=== PATIENT | female | born 1940 | race Caucasian/White ===

== ENCOUNTER 2025-05-19 12:00 | Emergency (ER) | payer OTHER, SELFPAY ==
[2025-05-19] VITALS (10 sets, daily range): BP systolic 121–144; BP diastolic 55–69; PULSE 70–81; BMI 26.3
[2025-05-19 12:43] LABS: Hematocrit 40.7 % (37.0-47.0); Hemoglobin 13.3 g/dL (12.0-16.0); Mean Corp Hgb Conc. 32.7 g/dL (33.0-37.0); Mean Corpuscular Volume 94.7 fL (81.0-99.0); Nucleated Red Blood Cells % 0 %; Platelet Count 318 10^3/uL (130-400); Red Cell Dist. Width 13.5 % (11.5-14.5)
[2025-05-19 12:50] LABS: COVID-19 Antigen Negative (Negative)
[2025-05-19 12:58] LABS: ALT (SGPT) 23 U/L (0-35); AST (SGOT) 29 U/L (14-36); Albumin 3.8 g/dl (3.5-5.0); Alkaline Phosphatase 80 U/L (38-126); Blood Urea Nitrogen 27 mg/dl (7-17); Calcium 9.3 mg/dl (8.4-10.2); Carbon Dioxide 25 mmol/L (22-30); Chloride 102 mmol/L (98-107); Estimated Creatinine Clearance 29 ml/min; Glucose 138 mg/dl (70-99); Potassium 4.2 mmol/L (3.5-5.1); Sodium 138 mmol/L (135-145); Total Protein 7.2 g/dl (6.3-8.2); eGFR 37.33
[2025-05-19] MEDS: NSS 1000 IV (13:07)
[2025-05-19 13:10] LABS: Troponin I 0.013 ng/ml
--- NOTE | 2025-05-19 13:19 | ED.GENMED ---
History of Present Illness
General
Chief Complaint: Fainting Sensation
Time Seen by Provider: 05/19/25 12:23
History of Present Illness
History of Present Illness:
84-year-old female with history of Owen's palsy, TIA, hyperlipidemia, hypertension, chronic neck pain with prior laminectomy presenting to the emergency department for near syncopal episode. Patient was at [employer] prior to arrival. She stood up,
and suddenly had to sit back down because she was about to pass out. Witnessed by family. No report of full LOC. I do note the patient overall has poor p.o. intake, does not drink a lot of fluids. Patient reports that she drank a small juice
glass of V8 today, otherwise did not had anything to eat. Patient has chronic neck pain, so did take an oxycodone this morning. Has had syncopal episodes in the past, [place], however thought to be secondary to the heat.
Patient was incontinent of stool, however no report of any shaking activity. No report of any recent fever. Patient denies any prodromal chest pain or difficulty breathing. Patient currently denies acute medical complaints
Past History
Past History
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
Social History
Tobacco: Former smoker
Alcohol: Occasional
Personal:
Living: with family
Phy Exam
Physical Exam
Physical Exam:
General: Well-appearing, no clinical signs of dehydration, nontoxic and in no acute distress
HEENT: protecting airway, pupils equal and reactive, extraocular movements intact
Neck: appears supple
CV: Normal heart rate, regular rhythm
Resp: No accessory muscle use, no increased work of breathing, lungs clear to auscultation bilaterally
Abd: Soft and non-distended, no tenderness to palpation
Extremities: No deformities, no swelling
Neuro: alert, no focal neurologic deficit. Left facial drooping, reported chronic from prior Owen's palsy
: deferred
Rectal: deferred
Psych: Normal affect
Skin: Intact
Course
Orders/Labs/Results
Orders:
Orders
05/19/25 12:12
Electrocardiogram (*1) Urgent
Reason for Study: Vertigo / Dizzy
EKG- Treatment ONCE
05/19/25 12:25
COVID-19 Antigen Urgent
Source: Nasal Swab
Complete Blood Count/With Diff Urgent
Comprehensive Metabolic Panel Urgent
Troponin I Urgent
Influenza A+B Rapid Molecular Urgent
ENRIQUE Source: Nasal Swab
Specimen Description:
05/19/25 12:57
Orthostatic VS- Treatment ONCE
0.9% Sodium Chloride 1000 ml [Nss] 1,000 ml IV BOLUS
05/19/25 13:30
EKG- Treatment ONCE
05/19/25 15:00
Electrocardiogram (*1) Urgent
Reason for Study: Syncope
05/19/25 15:17
Troponin I Urgent
Abnormal Lab Results
05/19/25
12:25
MCHC 32.7 L g/dL
(33.0-37.0)
Monocytes % 9.8 H %
(1.7-9.3)
BUN 27 H mg/dl
(7-17)
Creatinine 1.4 H mg/dL
(0.6-1.0)
Glucose 138 H mg/dl
(70-99)
05/19/25 12:25
05/19/25 12:25
Vital Signs
Initial and Last Documented VS:
Initial Vital Signs
Pulse Resp
72 13
05/19/25 12:04 05/19/25 12:04
Last Documented Vital Signs
Temp Pulse Resp BP Pulse Ox
97.7 F 70 15 135/61 97
05/19/25 12:18 05/19/25 14:00 05/19/25 14:00 05/19/25 14:00 05/19/25 14:00
MDM/Problems Addressed
MDM/Problems Addressed:
84-year-old female with history of Owen's palsy, chronic cervical neck pain, hypertension, hyperlipidemia presenting to the emergency department for near syncopal episode. Vital signs on arrival are normal.
On exam, patient is resting comfortably, currently asymptomatic. Unremarkable cardiac, pulmonary, neurologic exam. Suspect vasovagal etiology to patient's symptoms. Notes that she nearly passed out when standing up at [employer], poor p.o. intake
this morning. Additionally, patient took an oxycodone prior to going to [employer]ism, and felt that she was triggered by the incense of the taoism. EKG obtained on arrival, no obvious ischemia, however does appear to have a new right bundle branch
block. Plan for screening laboratory analysis, hydration with IV fluids, laboratory analysis.
13:20 - Labs show mild YUKI, consistent with acute dehydration, and likely contribution to near syncopal episode. Troponin is detectable, however normal. Will repeat given patient's EKG. will continue to closely monitor.
16:10 - Second troponin is within normal limits. EKG unchanged. At this time continue to suspect dehydration as etiology of symptoms. Advised continued oral hydration. Also advise having outpatient creatinine rechecked with primary provider.
Return precautions discussed and patient verbalized understanding
*Pulse Oximetry
SaO2: 99
Oxygen Mode of Delivery: Room air
Patient hypoxic: no
*EKG
Interpreted by ED Provider?: Yes
EKG Intrepretation Date: 05/19/25
EKG Intrepretation Time: 13:21
Interpretation: abnormal
Comparison EKG: changes noted (11/21/21)
Heart Rate: 69
Rate: normal
Rhythm: sinus
Interval: normal interval
QRS Pattern: right bundle branch block
Ischemia: non-specific ST changes
*Critical Care Note
Total Time (30-74mins, 75-104mins- exclusive of procedures): Not Applicable
ED Attending Note
-
Portions of this chart may have been created with voice recognition software.� Occasional wrong word or��sound alike� substitutions may have occurred due to the inherent limitations of voice recognition software.
Discharge Plan
Departure
Patient Disposition: Home (Routine Discharge)
Date of Disposition: 05/19/25
Time of Disposition: 16:12
Patient with high blood pressure during this ER visit?: No
Condition: Good
Discharge Problem:
Syncope, near, Dehydration, YUKI (acute kidney injury)
Instructions: Syncope (Fainting) (DC), Dehydration in adults - ED (DC)
Prescriptions:
No Action
omeprazole 20 MG capsule,delayed release(DR/EC)
20 mg PO DAILY
diazepam 5 MG tablet
5 mg PO BIDPRN PRN (Reason: anxiety)
Patient Comments:
11/21/21: last filled 09/27/21 #90
ibuprofen 200 MG tablet
600 mg PO BIDPRN PRN (Reason: mild pain)
Theragen Tablet
1 tab PO DAILY
levothyroxine 25 mcg tablet
25 mcg PO DAILY
oxycodone-acetaminophen 5-325 mg tablet
0.5 - 1 tab PO BIDPRN PRN (Reason: moderate pain)
furosemide 20 mg tablet
20 mg PO DAILY
pregabalin 75 mg capsule
75 mg PO BID
Referrals:
Man Miller MD [Family Provider, Family Practice]
Julian Winslow MD [Non-Admitting Privileges, Internal Medicine]
Chris Peraza MD [Active, Cardiology]
Activity Restrictions/Additional Instructions:
You were seen in the emergency department for an episode of nearly passing out
You were found to have reassuring vital signs and laboratory analysis with the exception of elevated kidney function. We suspect that dehydration triggered your symptoms. Please continue to drink plenty of fluids orally and follow-up with your
primary care physician for a repeat BUN and creatinine to assess your kidney function is improving. Your EKG also showed evidence of a right bundle branch block. We recommend follow-up with a development chemist.
Please follow-up closely with your primary care physician.
Return to the emergency department for any worsening of your symptoms, or any development of chest pain, difficulty breathing, abdominal pain with persistent vomiting and inability to tolerate food or liquid by mouth (concern for dehydration),
weakness, headache or confusion, fever greater than 100.4, or any additional symptoms that are concerning to you.
Thank you for choosing [facility].
Interventions
Interventions:
*Risk Screen - Suicide Last Done: 05/19/25 12:08
*General Assessment Last Done: 05/19/25 12:07
*Neglect/Abuse Screening Last Done: 05/19/25 12:08
*ED COVID-19 Vaccine History Last Done: 05/19/25 12:09
*ED Influenza Vaccine History Last Done: 05/19/25 12:09
ED- Cardiac Assessment Last Done: 05/19/25 12:41
ED- Neurological Assessment Last Done: 05/19/25 12:41
Discharge Date and Time
Print Language: MICRONESIAN
[2025-05-19 15:58] LABS: Troponin I 0.014 ng/ml
== END 2025-05-19 16:51 | disposition home or self-care (01) ==
LOC: EMR 12:00
PROVIDERS: EMERGENCY PHYSICIAN Student in an Organized Health Care Education/Training Program; FAMILY PHYSICIAN Family Medicine
DX: R55 Syncope and collapse (principal); E86.0 Dehydration; N17.9 Acute kidney failure, unspecified; I45.10 Unspecified right bundle-branch block; I10 Essential (primary) hypertension; E78.00 Pure hypercholesterolemia, unspecified; K21.9 Gastro-esophageal reflux disease without esophagitis; M54.2 Cervicalgia; G89.29 Other chronic pain; M19.90 Unspecified osteoarthritis, unspecified site; Z86.73 Personal history of transient ischemic attack (TIA), and cerebral infarction without residual deficits; Z87.891 Personal history of nicotine dependence
CPT/HCPCS: 99284; 96360; 96361; 80053; 84484; 85025; 87502; 87811; 93005